=== PATIENT | female | born 1985 | race Caucasian/White ===

== ENCOUNTER → 2017-06-11 14:00 | Outpatient (CLI) | payer MEDICAID, SELFPAY ==
[2017-06-11 16:00] LABS: Hematocrit 33.3 % (37-47); Hemoglobin 10.9 g/dl (12.0-15.0); Mean Corp Hgb Conc 32.7 g/gl (32-36); Mean Corpuscular Hgb 31.1 pg (27.0-32.0); Mean Corpuscular Volume 95.1 fL (81-99); Mean Platelet Vol. 9.2 fl (6.2-12.0); Platelet Count 282 K/mm3 (150-450); RBC Distribution Width CV 14.4 % (11.6-14.6); RBC Distribution Width SD 49.4 fl (35.1-43.9); White Blood Count 13.1 K/mm3 (4.4-11.0)
[2017-06-11 16:02] LABS: Glucose Challenge Gest 1H 50g 134 mg/dL (70-140)
[2017-06-11 16:27] LABS: Scan Indicated on CBC? Y/N NO
== END ==
PROVIDERS: Visit Provider Obstetrics & Gynecology
DX: Z34.83 Encounter for supervision of other normal pregnancy, third trimester (principal); Z3A.00 Weeks of gestation of pregnancy not specified
CPT/HCPCS: 36415; 82950; 85027

== ENCOUNTER → 2017-07-31 14:51 | Outpatient (CLI) | payer MEDICAID, SELFPAY ==
[2017-07-31 17:34] LABS: Group B Strep DNA By PCR Negative (Negative); Internal Control PASS; Probe Check PASS; Specimen Processing Control PASS
== END ==
PROVIDERS: Family Provider Internal Medicine; PCP Internal Medicine; Visit Provider Obstetrics & Gynecology
DX: Z36.85 Encounter for antenatal screening for Streptococcus B (principal)
CPT/HCPCS: 87081; 87653

== ENCOUNTER 2017-08-22 12:15 | Inpatient (IN) | payer MEDICAID, SELFPAY ==
[2017-08-22] MEDS: Lactated Ringers 1,000 ML 50 ML IV ×3 (12:42→19:45)
[2017-08-22 12:47] VITALS: BMI 45.6
[2017-08-22 13:03] LABS: Hematocrit 34.7 % (37-47); Hemoglobin 11.3 g/dl (12.0-15.0); Mean Corp Hgb Conc 32.6 g/gl (32-36); Mean Platelet Vol. 9.4 fl (6.2-12.0); Platelet Count 258 K/mm3 (150-450); RBC Distribution Width CV 14.2 % (11.6-14.6); Red Blood Count 3.77 M/mm3 (4.2-5.4); White Blood Count 11.9 K/mm3 (4.4-11.0)
[2017-08-22 13:05] LABS: Scan Indicated on CBC? Y/N NO
[2017-08-22] MEDS: Oxytocin 30 units/NS 500 ml 30 UNITS/500 ML IV.SOLN IV (14:24)
--- NOTE | 2017-08-22 19:55 | PCM.PN.BLA ---
Progress Note PROGRESS NOTE LATE ENTRY From 171 as Provender system not working at time Feeling some Ucs, but not painful AVSS Pitocin induction pitocin at 10 mIU/min EFM 130-140s avg variability + accels. Category I tracing. UCs difficult to mushroom picker d/t body habitus CX 4+/75/-3 Vtx well applied to cervix. AROM: clear fluid, mod amt IUPC and scalp lead placed A/P: induction of labor, elective at 39 1/7 wk EGA Continue pitocin. OK for epidural if desires. Anticipate
--- NOTE | 2017-08-22 19:58 | PCM.PN.BLA ---
Progress Note LATE ENTRY from 1725 PM Scalp lead no longer working. RN called me to replace. Scalp lead removed Second scalp lead applied.
--- NOTE | 2017-08-22 19:58 | PN_ITS ---
Progress Note PROGRESS NOTE LATE ENTRY From 171 as Replise system not working at time Feeling some Ucs, but not painful AVSS Pitocin induction pitocin at 10 mIU/min EFM 130-140s avg variability + accels. Category I tracing. UCs difficult to chicken picker d/t body habitus CX 4+/75/-3 Vtx well applied to cervix. AROM: clear fluid, mod amt IUPC and scalp lead placed A/P: induction of labor, elective at 39 1/7 wk EGA Continue pitocin. OK for epidural if desires. Anticipate
--- NOTE | 2017-08-22 19:58 | PCM.PN.BLA ---
Progress Note LABOR PROGRESS NOTE Comfortable w/ epidural AVSS Pitocin at 10 mIU/min ? mVUs on UCs CX: /-2 IFM: 130-140s avg variability. Accels. variables and occasional late. Category I tracing still. UCs approx q 3 mins A/P: Adequate progress, induction of labor at 39 1/7 wk Anticipate
[2017-08-22] MEDS: Oxytocin 30 units/NS 500 ml 30 UNITS/500 ML IV.SOLN 334 UNITS IV (21:33)
--- NOTE | 2017-08-22 21:42 | PCM.OB.VAG ---
Vaginal Delivery Maternal Presentation: Elective Induction Method of Induction: Pitocin, Amniotomy Amniotic Membrane Rupture Type: Artificial Amniotic Fluid Description: Clear Final MEHNAZ: 08/28/17 Final MEHNAZ Source: US <20 weeks Gestational age: 39 Weeks and 1 Days Date of Procedure: 08/22/17 Pre-Operative Diagnosis: 39 1/7 wk induction Post-Operative Diagnosis: same Surgery/ Procedure Performed: Spontaneous Vaginal Delivery Anesthesiologist: Grazyna Hair Type of Anesthesia: Epidural Description of Procedure: of a perkins viable female over midline episiotomy. Head delivered TRES. OP and nares bulb suctioned on perineum. No nuchal cord noted. Shoulders delivered easily with MacRoberts maneuver, maternal expulsive effort , rotation of anterior shoulder Cord clamped x two and cut. to RN to dry and stim and then to maternal abdomen for skin to skin. Routine cord blood for typing, Arterial and venous cord gases sent. PP exam: midline episiotomy repaired under epidural to hemostatic and intact with 3-0 vicryl no lacerations noted EBL 350 cc Placenta delivered by spont expulsion, expression. 3V cord, normal appearing, intact with trailing membranes Pt and tolerated delivery well. To recovery, stable condition Ray Nicolás counts correct x two. Presentation: Vertex, TRES Placental Delivery Description: Spontaneous Placenta Disposition: [facility] Cord Vessel Description: 3 Vessels Cord Gases drawn per routine: ABG, VBG Cord Entanglement: None Drain: Goel to straight drain Estimated Blood Loss: 350 Infant A gender: Female (1 minute): 8 (5 minute): 9 Episiotomy Description: Midline Laceration: None Medications given after delivery: IV Pitocin Complications: None
[2017-08-22] MEDS: Oxytocin 30 units/NS 500 ml 30 UNITS/500 ML IV.SOLN 167 UNITS IV (22:03)
[2017-08-23] MEDS: Ibuprofen 600 MG Tablet PO ×3 (03:06→23:18)
[2017-08-23 04:00] VITALS: BP 132/79; PULSE 90; RESP 18; TEMP 36.6; O2SAT 98
[2017-08-23] MEDS: Senna/Docusate Sodium 1 Tablet PO ×2 (05:52→14:17)
[2017-08-23] MEDS: oxyCODONE 5 MG Tablet PO ×3 (05:52→23:22)
--- NOTE | 2017-08-23 08:45 | PCM.PN.OB ---
Subjective: PPD#1 Plans to nurse. baby is sleepy and having some issues with blood sugars. 9# 8 oz at . Pt taking some OxyIR but taking this more for her hip pain, sciatica, and relates hip worse today as slipped in shower yesterday and strained muscles. no concerns otherwise voiced. will stay til tomorrow d/t feeding issues, and blood sugars. - Physical Exam General: Alert, Oriented x3, Cooperative, No apparent distress HEENT: Atraumatic Neck: Supple Abdomen: Soft, Obese Psych/Mental Status: Normal Affect Vital Signs Temp Pulse Resp BP Pulse Ox 97.8 F 90 18 132/79 H 98 08/23/17 04:00 08/23/17 04:00 08/23/17 04:00 08/23/17 04:00 08/23/17 04:00 Oxygen Delivery Method Room Air Weight: 136.3 kg Body Mass Index (BMI) 45.6 Intake and Output for Last 24 Hours 08/21/17 08/22/17 08/23/17 23:59 23:59 23:59 Intake Total 2090 / 2090 570 / 570 Output Total 750 / 750 1250 / 1250 Balance 1340 / 1340 -680 / -680 Laboratory Tests Past 24 Hrs 08/22/17 08/22/17 12:42 12:42 WBC 11.9 H RBC 3.77 L Hgb 11.3 L Hct 34.7 L MCV 92.0 MCH 30.0 MCHC 32.6 RDW 14.2 RDW Differential 47.0 H Plt Count 258 MPV 9.4 Blood Type O POSITIVE Antibody Screen NEGATIVE Medical Necessity - Tobacco Use Smoking Status: Former smoker Assessment/Plan PPD#1 Induction at 39 1/7 wk LGA Stable Continue care.
[2017-08-23] MEDS: Prenatal Vits Tablet 1 TABLET PO (09:29)
[2017-08-23 09:37] VITALS: BP 113/79; RESP 16; TEMP 36.7
[2017-08-23 14:00] VITALS: BP 139/80; PULSE 93; RESP 16; TEMP 36.6
[2017-08-23 18:00] VITALS: BP 144/83; PULSE 89; RESP 16; TEMP 36.8
[2017-08-23 19:48] VITALS: BP 142/76; PULSE 83; RESP 14; TEMP 36.2; O2SAT 99
[2017-08-24 01:35] VITALS: BP 135/64; PULSE 87; RESP 14; TEMP 36.1; O2SAT 97
--- NOTE | 2017-08-24 07:10 | PCM.DCVAG ---
Discharge Diet: No Restrictions Discharge Activity: May Shower, May Take a Tub Bath Return to work on:: 10/06/17 May resume sexual activity in: 4-6 weeks Additional Activity Instructions:: Nothing in the vagina for 4-6 weeks. You may return to work/school in 6 weeks. Additional Instructions: START YOUR CONTROL PILL in two weeks after delivery. If you experience any of the following, contact your healthcare provider. Bleeding that soaks a pad every hour for 2 hours Fever 100.4 or higher Unrelieved abdominal pain Problems urinating (including inability to urinate or burning while urinating). Visual changes Severe headache Flu-like symptoms Pain or redness in one of both of your breasts Pain, warmth, tenderness or swelling in your legs, especially the calf area Frequent nausea and vomiting Symptoms of depression or anxiety If you experience any of the following, call 911 or go to the nearest Emergency Room. Chest pain Problems breathing Seizure activity Partial or complete paralysis of a body part, slurred speech, weakness or drooping of the face, or a sudden inability to walk or hold your balance Allergies/Adverse Reactions: Allergies No Known Allergies Allergy (Verified 11/30/13 18:06) Medications to take at Discharge Vit No.130/Iron/FA [ Vitamins] 1 each PO DAILY 08/22/17 Norethindrone 1 tab PO DAILY #28 tab 08/24/17 The following prescriptions were given: Norethindrone 1 tab PO DAILY #28 tab Orders to be completed after discharge: Electric breast pump Time Frame: 1 Year, Location: None Selected Please Follow Up With: Darrin Moya MD - [phone] When: Call to make an appointment with your doctor in 6 weeks. Primary Care Physician: Kristie Gaston MD [Primary Care Provider] -
--- NOTE | 2017-08-24 07:12 | DCINST_ITS ---
Discharge Diet: No Restrictions Discharge Activity: May Shower, May Take a Tub Bath Return to work on:: 10/06/17 May resume sexual activity in: 4-6 weeks Additional Activity Instructions:: Nothing in the vagina for 4-6 weeks. You may return to work/school in 6 weeks. Additional Instructions: START YOUR CONTROL PILL in two weeks after delivery. If you experience any of the following, contact your healthcare provider. * Bleeding that soaks a pad every hour for 2 hours * Fever 100.4 or higher * Unrelieved abdominal pain * Problems urinating (including inability to urinate or burning while urinating) . * Visual changes * Severe headache * Flu-like symptoms * Pain or redness in one of both of your breasts * Pain, warmth, tenderness or swelling in your legs, especially the calf area * Frequent nausea and vomiting * Symptoms of depression or anxiety If you experience any of the following, call 911 or go to the nearest Emergency Room. * Chest pain * Problems breathing * Seizure activity * Partial or complete paralysis of a body part, slurred speech, weakness or drooping of the face, or a sudden inability to walk or hold your balance * Allergies/Adverse Reactions: Allergies No Known Allergies Allergy (Verified 11/30/13 18:06) Medications to take at Discharge Vit No.130/Iron/FA [ Vitamins] 1 each PO DAILY 08/22/17 Norethindrone 1 tab PO DAILY #28 tab 08/24/17 The following prescriptions were given: Norethindrone 1 tab PO DAILY #28 tab Orders to be completed after discharge: Electric breast pump Time Frame: 1 Year, Location: None Selected Please Follow Up With: Darrin Moya MD - [phone] When: Call to make an appointment with your doctor in 6 weeks. Primary Care Physician: Kristie Gaston MD [Primary Care Provider] -
--- NOTE | 2017-08-24 07:12 | PCM.PN.OB ---
Subjective: PPD#2 Induction for LGA 9# + and supplementing d/t baby's blood sugars which have improved with supplementation. wants to start on control prior to her 6 wk appt. Concerned she will have PCOS problems with ovarian cysts while nursing. Advised start OCP in 2 wks. RX sent. Wants it sent to [facility]. States wants to pick it up right away. Will transfer RX to [place] later. Wanted BTO, but had mesh implant at umbilicus for hernia and had discussed ESSURE with Dr. Moya. Does not want this d/t concerns re foreign body inside. - Physical Exam General: Alert, Oriented x3, No apparent distress HEENT: Atraumatic, EOMI Neck: Supple Neurological: Cranial nerves II-XII grossly intact Psych/Mental Status: Normal Affect Vital Signs Temp Pulse Resp BP Pulse Ox 96.9 F L 87 14 135/64 H 97 08/24/17 01:35 08/24/17 01:35 08/24/17 01:35 08/24/17 01:35 08/24/17 01:35 Oxygen Delivery Method Room Air Weight: 136.3 kg Body Mass Index (BMI) 45.6 Intake and Output for Last 24 Hours 08/22/17 08/23/17 08/24/17 23:59 23:59 23:59 Intake Total 2090 / 2090 570 / 570 Output Total 750 / 750 1250 / 1250 Balance 1340 / 1340 -680 / -680 Medical Necessity - Tobacco Use Smoking Status: Former smoker Assessment/Plan PPD# 2 Induction at 39 1/7 wk LGA Stable Home today.
[2017-08-24 07:30] VITALS: BP 133/75; PULSE 89; RESP 18; TEMP 36.6
[2017-08-24] MEDS: Ibuprofen 600 MG Tablet PO (08:07)
== END 2017-08-24 14:55 | disposition home or self-care (01) | DRG 373 ==
PROVIDERS: Admitting Provider Obstetrics & Gynecology; Family Provider Internal Medicine; PCP Internal Medicine; Visit Provider Obstetrics & Gynecology
DX: O36.63X0 Maternal care for excessive fetal growth, third trimester, not applicable or unspecified (principal); O34.83 Maternal care for other abnormalities of pelvic organs, third trimester; E28.2 Polycystic ovarian syndrome; O99.214 Obesity complicating childbirth; E66.01 Morbid (severe) obesity due to excess calories; Z68.42 Body mass index [BMI] 45.0-49.9, adult; Z87.891 Personal history of nicotine dependence; Z3A.39 39 weeks gestation of pregnancy; Z37.0 Single live birth
CPT/HCPCS: 59025; 59050; 85027; 86850; 86900; 99218; J7120; G0378

== ENCOUNTER → 2017-10-09 13:35 | Outpatient (CLI) | payer MEDICAID, SELFPAY ==
--- NOTE | 2017-10-09 13:35 | DT_ITS ---
This patient was seen during an EMR downtime October 06, 2017 - October 13, 2017. This patient may have a combination of paper and electronic documentation or all paper documentation. All documentation is viewable within the e-chart portion of [facility] for each patient visit.
[2017-10-14 06:21] LABS: Pregnancy, Serum, hCG Quali. NEGATIVE Negative (0-9 Nonpreg)
== END ==
PROVIDERS: Visit Provider Obstetrics & Gynecology
DX: Z30.430 Encounter for insertion of intrauterine contraceptive device (principal)
CPT/HCPCS: 36415; 84144; 84703

== ENCOUNTER → 2017-10-13 18:05 | Outpatient (CLI) | payer MEDICAID, SELFPAY ==
--- NOTE | 2017-10-13 18:05 | DT_ITS ---
This patient was seen during an EMR downtime October 06, 2017 - October 13, 2017. This patient may have a combination of paper and electronic documentation or all paper documentation. All documentation is viewable within the e-chart portion of [employer] for each patient visit.
[2017-10-13 22:32] LABS: Chlamydia Trachomatis by PCR Negative (Negative); Neisserai gonorrhoeae by PCR Negative (Negative); Probe Check PASS; Sample Adequacy Control PASS; Specimen Processing Control PASS
[2017-10-21 15:08] LABS: HPV Reflexed? NOT INDICATED
== END ==
PROVIDERS: Family Provider Internal Medicine; PCP Internal Medicine; Visit Provider Obstetrics & Gynecology
DX: Z12.4 Encounter for screening for malignant neoplasm of cervix (principal); Z11.3 Encounter for screening for infections with a predominantly sexual mode of transmission
CPT/HCPCS: 87491; 87591; 88175; G0145

== ENCOUNTER → 2018-10-14 15:48 | Outpatient (CLI) | payer MEDICAID, SELFPAY ==
[2018-10-20 16:01] LABS: HPV Reflexed? NOT INDICATED
== END ==
PROVIDERS: Visit Provider Obstetrics & Gynecology
DX: Z12.4 Encounter for screening for malignant neoplasm of cervix (principal)
CPT/HCPCS: 87624; 88175; G0145

== ENCOUNTER 2019-05-22 12:35 | Emergency (ER) | payer MEDICAID, SELFPAY ==
[2019-05-22 12:35] VITALS: BP 154/99; PULSE 99; RESP 16; TEMP 36.6; O2SAT 98; BMI 45.4
--- NOTE | 2019-05-22 12:53 | ED.DCSUM_ITS ---
- ER Visit Summary Date of Service: 05/22/19 Chief Complaint: Right knee pain History of Present Illness: The patient is a 33 F who presents with right knee injury that occurred this morning. Patient states she slipped on some steps today and fell onto her knee. Patient thinks she felt and heard a pop. Patient describes the pain as a tearing pain. Patient states pain is worse with weightbearing. Patient admits to some mild tingling but denies any weakness. Patient thinks she also landed on her left knee but she is able to move that without difficulty. Patient denies any head injury or loss of consciousness. Physical Examination: Vital signs are stable. Patient is afebrile. Patient is in no acute distress. Oral mucosa is pink and moist. Neck is supple. Trachea is midline. There is no JVD. Musculoskeletal exam reveals tenderness over the anterior and lateral aspects of the right knee. There is no effusion. There is no bony crepitance or step-off. Range of motion was limited in all motions of the right knee secondary to pain. There is no laxity appreciated however the patient is guarding on exam. Sensation was intact to light touch bilaterally in the lower extremities. Posterior tibial pulses are equal bilaterally. Test Results: X-rays of the right knee were obtained. There is no acute fracture. This was interpreted by the radiologist and myself. Emergency Department Course and Treatment: Patient was instructed to ice and elevate the right knee. Patient was instructed to take Tylenol or ibuprofen as needed for pain. Patient was instructed to follow-up with her primary care physician in 5-7 days. Patient understood and was agreeable with the plan. All questions were answered. Disposition: Discharge home Impression: Right knee sprain This note was generated with [employer] dictation software. It may contain incorrect words, spelling, and punctuation that were not noted in review of the chart prior to signing ED Disposition - Plan for ED Patient: Disposition: Home or Assisted Living Diagnosis: Right knee sprain Instructions: Knee Sprain Referrals: Kristie Gaston MD [Primary Care Provider] - 5-7 Days
--- NOTE | 2019-05-22 13:15 | RAD_ITS ---
STUDY: X-RAY - RIGHT KNEE REASON FOR EXAM: Female, 33 years old. PAIN S/P FALL TECHNIQUE: 4 view(s) of the knee. COMPARISON: None. FINDINGS: Normal visualized distal femur. Normal visualized proximal tibia and fibula. Normal proximal tibiofibular articulation. Normal medial femorotibial compartment. Normal lateral femorotibial compartment. Normal patellofemoral articulation. There is no demonstrated joint effusion. The soft tissue structures are unremarkable. RAD/Knee 4 or More Views IMPRESSION: No fracture or malalignment. Electronically Signed: Phillip Garcia MD ([place]) at 13:37 EST , Service support ,
== END 2019-05-22 14:28 | disposition home or self-care (01) ==
PROVIDERS: Emergency Provider Emergency Medicine; PCP Internal Medicine; Referring Provider Internal Medicine
DX: S83.91XA Sprain of unspecified site of right knee, initial encounter (principal); W00.1XXA Fall from stairs and steps due to ice and snow, initial encounter; Y93.9 Activity, unspecified; E66.9 Obesity, unspecified; Z68.42 Body mass index [BMI] 45.0-49.9, adult
CPT/HCPCS: 73564; 99282

== ENCOUNTER → 2020-12-13 14:50 | Outpatient (CLI) | payer MEDICAID, SELFPAY ==
[2019-07-14 16:31] VITALS: BMI 45.4
[2020-12-18 13:52] LABS: HPV Reflexed? NOT INDICATED
== END ==
PROVIDERS: PCP Internal Medicine; Visit Provider Obstetrics & Gynecology
DX: Z12.4 Encounter for screening for malignant neoplasm of cervix (principal)
CPT/HCPCS: 88175; G0145

== ENCOUNTER 2021-09-05 16:00 | Outpatient (RCR) | payer MEDICAID, SELFPAY ==
--- NOTE | 2021-04-02 17:10 | HP.PTEVAL ---
Patient's Visit Information REINIER JUÁREZ is a 35 year old F referred to Physical Therapy by Dr. Kristie Gaston MD with a diagnosis of LUMBAR RADICULOPATHY. Date of Evaluation: 04/02/21 Physical Therapist: Taj Bertrand, PT, Cert MDT, OCS - Visit Plan Frequency: 2x /Week Duration: 4 Weeks Plan: PT INTERVETIONS JEAN MARIE EX'S,PROGRESS TO DLS ,POSTURAL EX'S AND US CP/MHP FOR PAIN - Subjective This 35 y/o female presents to physical therapy with lumbar radiculopathy. Patient has lumbar pain since 2011 and radicular symptoms . Most recently patient developed lumbar pain and calf/feet with paresthesia/tingling . Patient has intermittent lumbar pain. Noticed after medications BP noticed symptoms worse. Patient also has referral to pain management . Aggravating factors lumbar bending, lifting ,sleeping extended walking. But symptoms below knee mainly at night. Alleviating factors extension and MEDS not distal symptoms are unchanged. Today no distal symptoms. Coughing/sneezing -.Bowel/bladder -. Patient has had prior PT for lumbar . Patient symptoms affects QOL and function. Patient had MRI showed Mod/severe L4-5,L5-S1. VOCATION: Delivers paper. SOCIAL: - Pain Bilateral Back Pain Intensity (Out of 10): 1 Pain Intensity Range: 10 - Objective POSTURE: mild forward posture. GAIT: RECIPROCAL PATTERN. PALPATION : Tender LS. SYMMTRIES: align. MMT: quads/hams 4/5,hip flexion 4/5,ankle 4/5. LUMBAR ROM: flexion WFL ,extension min loss, side glides WFL. FLEXABLITY: hamstrings WFL - Special Tests L/S Slump test left side: Negative L/S Slump test right side: Negative L/S Left Straight Leg Raise: Negative L/S Right Straight Leg Raise: Negative Lumbar Standing: Flexion - Mechanical Response: No effect Lumbar Standing: Flexion - Symptoms During Testing: Increases Lumbar Standing: Flexion - Symptoms After Testing: No worse Lumbar Standing: Extension - Mechanical Response: No effect Lumbar Standing: Extension - Symptoms During Testing: Increases Lumbar Standing: Extension - Symptoms After Testing: No worse Lumbar Standing: Right Side Glides - Mechanical Response: No effect Lumbar Standing: Right Side Markesan - Symptoms During Testing: No effect Lumbar Standing: Right Side Markesan - Symptoms After Testing: No effect Lumbar Standing: Left Side Markesan - Mechanical Response: No effect Lumbar Standing: Left Side Markesan - Symptoms During Testing: No effect Lumbar Standing: Left Side Markesan - Symptoms After Testing: No effect Lumbar Lying: Flexion - Mechanical Response: No effect Lumbar Lying: Flexion - Symptoms During Testing: Increases Lumbar Lying: Flexion - Symptoms After Testing: Worse Lumbar Lying: Extension - Mechanical Response: No effect Lumbar Lying: Extension - Symptoms During Testing: Centralizing Lumbar Lying: Extension - Symptoms After Testing: No better - Balance/Special Test Scores Oswestry Low Back Score: 13 - Goals Goal 1:: Patient to be I with HEP to manage back pain Goal Time Frame: 4-6 Weeks Goal 2:: Patient to improve posture /body mechanics for ADLS' Goal Time Frame: 4-6 Weeks Goal 3:: Patient demonstrate 50% improvement with decrease symptoms to improve function Goal Time Frame: 4-6 Weeks Goal 4:: Patient to improve lumbar ROM for function of recoevery Goal Time Frame: 4-6 Weeks Goal 5:: Patient to improve back owestry score by 5 points or> to improve QOL Goal Time Frame: 4-6 Weeks - Rehabilitation Potential Physical Therapy Diagnosis: This patient has lumbar radiculopathy with possible derangement with pain worse with flexion ,better with posture correction but min affects with test movements with symptoms below knee thus benefit from skilled PT Rehabilitation Potential: Good - Anticipated Interventions Patient/Client Instruction: Educate patient on: Condition, Plan of Care For the Purpose of:: To decrease pain, To improve nutrient delivery to tissue, To improve muscle performance and motor function, To improve ability to perform ADL's, To increase tolerance to activity/condition/position, To improve performance and independence with ADL's, To improve ability of physical actions for home/community/work/leisure, To improve health of tissue, To decrease soft tissue restriction, To increase flexibility/ROM, To prevent re-injury Therapeutic Exercise to Include: Strength training, Power training, Body mechanics, Postural training, Flexibilty training, Dynamic Lumbar Stabilization For the Purpose of:: To decrease pain, To increase ROM, To improve muscle performance and motor function, To improve ability to perform ADL's, To increase tolerance to activity/condition/position, To improve performance and independence with ADL's, To improve ability of physical actions for home/community/work/leisure, To improve health of tissue, To decrease soft tissue restriction, To increase flexibility/ROM, To prevent re-injury Cryotherapy (ice pack, ice massage): Yes Thermo therapy (hot pack): Yes Ultrasound (thermal/non thermal): Yes For the Purpose of:: To decrease pain, To improve nutrient delivery to tissue, To increase oxygenation perfusion Thank you for the opportunity to evaluate your patient. For Medicare and Medicare HMO plans, please review the plan of care and approve it. It will need to be FAXED BACK to us at [phone] for Medicare purposes. For Medicare only, by signing this I certify the plan of care. Please let me know if there are questions or concerns regarding this plan of care. Physician Signature: Date:
== END 2021-09-05 19:00 | disposition home or self-care (01) ==
LOC: PT 16:00
PROVIDERS: PCP Internal Medicine; Referring Provider Internal Medicine; Visit Provider Internal Medicine
DX: M54.16 Radiculopathy, lumbar region (principal)
CPT/HCPCS: 97035; 97110; 97162

== ENCOUNTER 2021-10-03 16:07 | Outpatient (RCR) | payer MEDICAID, SELFPAY ==
--- NOTE | 2022-03-06 10:41 | HP.PTDCSUM ---
It has been my pleasure to treat REINIER JUÁREZ referred by Dr. Kristie Gaston MD, with the diagnosis of LUMBAR RADICULOPATHY for a total of 14 visit(s). Discharge Date: Please see the following information for a summary of their discharge status. Subjective: Patient has pinching in lumbar.worked Bilateral Back Pain Intensity (Out of 10): 5 % Improvement: 50 Objective/Function: POSTURE: WFL. GAIT: RECIPROCAL PATTERN. MMT: QUADS/HAMS 4/5,HIP FLEXIPN 4/5,ANKLE 5/5. FLEXABLITY: HAMSTRINGS MIN TIGHT. LUMBAR ROM: FLEXION WFL,EXT MIN LOSS Goal 1:: Patient to be I with HEP Goal Progress: Progressing Goal 2:: Patient demonstrate 50% improvement with decrease symptoms to improve function Goal Progress: Progressing Goal 3:: Pateint improve posture/body mechanics Goal Progress: Progressing Goal 4:: Patient improve lumbar ROM for function of recovery to lift laundry basket. Goal Progress: Progressing Goal 5:: Patient improve back oswestry score by 5 points or > to improve function Goal Progress: Progressing Plan: D/C If there are questions or concerns regarding this patient's physical therapy, please feel free to call me at [phone]. Thank you for the referral of this patient. Sincerely, Taj Bertrand PT, Cert MDT, OCS Balance/Gait/Functional tests - Balance/Special Test Scores Oswestry Low Back Score: 16
== END 2021-10-03 19:00 | disposition home or self-care (01) ==
LOC: PT 16:07
PROVIDERS: PCP Internal Medicine; Referring Provider Internal Medicine; Visit Provider Internal Medicine
DX: M54.16 Radiculopathy, lumbar region (principal)
CPT/HCPCS: 97110

== ENCOUNTER → 2021-12-18 | Outpatient (CLI) | payer MEDICAID, SELFPAY ==
[2021-12-23 15:20] LABS: HPV APTIMA, High Risk Negative (Negative)
== END | disposition home or self-care (01) ==
LOC: LABSPEC 13:28
PROVIDERS: PCP Internal Medicine; Visit Provider Obstetrics & Gynecology
DX: Z12.4 Encounter for screening for malignant neoplasm of cervix (principal)
CPT/HCPCS: 87624; 88175; G0145

== ENCOUNTER → 2022-03-14 | Outpatient (CLI) | payer MEDICAID, SELFPAY ==
[2022-03-14] MEDS: Methacholine Chloride 18 ml neb kit INHALATION (12:59)
--- NOTE | 2022-03-15 05:27 | BRONCHALL_ITS ---
Bronchoprovocation Challenge Bronchoprovocation Challenge Bronchoprovocation Challenge: BRONCHOPROVOCATION STUDY INTERPRETATION Brief HPI: Patient is a 36 year old female, currently under the care of Dr. Gaston, who presents to [facility] for a bronchoprovocation study secondary to diagnosis of dyspnea on exertion. Respiratory therapist reports good effort and reproducible results. Interpretation: Initial spirometry showed no large airways obstructive ventilatory defect. The patient was then given increasingly concentrated doses of methacholine in a stepwise/standardized fashion, using a modified ATS protocol. The patient had a significant reduction in FEV1 by 23% and a calculated PD20 of 0.051. Impression: Positive bronchoprovocation study and a range consistent with a diagnosis of asthma
== END | disposition home or self-care (01) ==
LOC: PSN 12:47
PROVIDERS: PCP Internal Medicine; Referring Provider Internal Medicine; Visit Provider Internal Medicine
DX: R06.09 Other forms of dyspnea (principal)
CPT/HCPCS: 94070; 95070